=== PATIENT | male | born 1945 | race Caucasian/White ===

== ENCOUNTER 2017-12-19 15:13 | Emergency (ER) | payer OTHER ==
[~2017-12-19] VITALS: Ht 190.5 cm; Wt 111.5 kg
[2017-12-19 15:24] VITALS: BP 154/74; PULSE 72; RESP 16; TEMP 97.9; O2SAT 97
[2017-12-19] MEDS ORDERED: HYDR50TA3 PO (16:04)
[2017-12-19] MEDS ORDERED: METO1TAB42 PO (16:04)
[2017-12-19] MEDS ORDERED: VERA120T3 PO (16:04)
[2017-12-19] MEDS ORDERED: ASPI81TA23 PO (16:04)
[2017-12-19] MEDS ORDERED: VITA100064 PO (16:04)
[2017-12-19] MEDS ORDERED: BACT800T5 PO (16:25)
--- NOTE | 2017-12-19 16:25 | PD ---
HPI Chief Complaint: Edema Time Seen by Provider: 15:43 Travel History International Travel<30 days: No Contact w/Intl Traveler<30days: No Traveled to known affect area: No History of Present Illness HPI This is a 72-year-old male presented the ER complaining of bilateral leg edema left more than right. 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 Patient went to the beach and was exposed to harsh sunlight for the last 4 days and since then has been having swelling of both legs left more than right associated with tenderness. Patient denies any fever chills or night sweats. Patient has history of hypertension but no diabetes currently does not smoke nor drink. PFSH Past Medical History Cardiovascular Problems: Yes (palpitations) Chest Pain: Yes Hypertension: Yes Tetanus Vaccination: < 5 Years Influenza Vaccination: Yes Past Surgical History Cholecystectomy: Yes Other Surgery: Yes (cardiac cath x 2) Social History Alcohol Use: No Tobacco Use: No Substance Use: No Allergies-Medications (Allergen,Severity, Reaction): Coded Allergies: No Known Allergies (Unverified , 12/19/17) Reported Meds & Prescriptions Reported Meds & Active Scripts Active Bactrim DS (Sulfamethoxazole-Trimethoprim) 800-160 Mg Tab 1 Tab PO BID Reported Vitamin D3 (Cholecalciferol) Unknown Strength Tab Unknown Dose PO DAILY Aspirin EC (Aspirin) 81 Mg Tabdr 81 Mg PO DAILY Metoprolol Succinate ER 24 HR (Metoprolol Succinate) 25 Mg Tab 25 Mg PO DAILY Hydrochlorothiazide 50 Mg Tab 50 Mg PO DAILY Verapamil (Verapamil HCl) 120 Mg Tab 120 Mg PO DAILY Review of Systems Except as stated in HPI: all other systems reviewed are Neg Physical Exam Narrative GENERAL: Alert oriented 3 no acute distress SKIN: Focused skin assessment warm/dry. HEAD: Atraumatic. Normocephalic. EYES: Pupils equal and round. No scleral icterus. No injection or drainage. ENT: No nasal bleeding or discharge. Mucous membranes pink and moist. NECK: Trachea midline. CARDIOVASCULAR: Regular rate and rhythm. No murmur appreciated. RESPIRATORY: No accessory muscle use. Clear to auscultation. Breath sounds equal bilaterally. GASTROINTESTINAL: Abdomen soft, non-tender, nondistended. Hepatic and splenic margins not palpable. MUSCULOSKELETAL: Chronic hyperpigmentation of both legs, area of erythema left more than right and warm to touch, pulses intact, sensory and motor function intact bilaterally. No discharge or bleeding, no open wounds. NEUROLOGICAL: Awake and alert. No obvious cranial nerve deficits. Motor grossly within normal limits. Normal speech. PSYCHIATRIC: Appropriate mood and affect; insight and judgment normal. Data Data Last Documented VS Vital Signs Date Time Temp Pulse Resp B/P (MAP) Pulse Ox O2 Delivery O2 Flow Rate FiO2 12/19/17 15:55 70 16 97 Room Air 12/19/17 15:24 97.9 154/74 (100) Orders Orders Complete Blood Count With Diff (12/19/17 16:07) Comprehensive Metabolic Panel (12/19/17 16:07) B-Type Natriuretic Peptide (12/19/17 16:07) Ed Discharge Order (12/19/17 17:21) Labs Laboratory Tests Test 12/19/17 16:35 White Blood Count 8.5 TH/MM3 Red Blood Count 4.46 MIL/MM3 Hemoglobin 13.5 GM/DL Hematocrit 41.4 % Mean Corpuscular Volume 93.0 FL Mean Corpuscular Hemoglobin 30.2 PG Mean Corpuscular Hemoglobin Concent 32.5 % Red Cell Distribution Width 13.0 % Platelet Count 245 TH/MM3 Mean Platelet Volume 8.6 FL Neutrophils (%) (Auto) 59.7 % Lymphocytes (%) (Auto) 24.4 % Monocytes (%) (Auto) 8.5 % Eosinophils (%) (Auto) 4.5 % Basophils (%) (Auto) 2.9 % Neutrophils # (Auto) 5.1 TH/MM3 Lymphocytes # (Auto) 2.1 TH/MM3 Monocytes # (Auto) 0.7 TH/MM3 Eosinophils # (Auto) 0.4 TH/MM3 Basophils # (Auto) 0.2 TH/MM3 CBC Comment DIFF FINAL Differential Comment Blood Urea Nitrogen 27 MG/DL Creatinine 1.20 MG/DL Random Glucose 127 MG/DL Total Protein 8.1 GM/DL Albumin 3.8 GM/DL Calcium Level 8.6 MG/DL Alkaline Phosphatase 94 U/L Aspartate Amino Transf (AST/SGOT) 40 U/L Alanine Aminotransferase (ALT/SGPT) 27 U/L Total Bilirubin 0.5 MG/DL Sodium Level 138 MEQ/L Potassium Level 4.8 MEQ/L Chloride Level 104 MEQ/L Carbon Dioxide Level 28.4 MEQ/L Anion Gap 6 MEQ/L Estimat Glomerular Filtration Rate 59 ML/MIN B-Type Natriuretic Peptide 17 PG/ML MDM Medical Decision Making Medical Screen Exam Complete: Yes Emergency Medical Condition: Yes Differential Diagnosis CHF, cellulitis, photosensitivity. Narrative Course This is a 72-year-old male presents to the ER complaining of bilateral leg pain left more than right. 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 Physical examination is remarkable for cellulitis left more than right. Lab work is within normal limits. Patient will be discharged him on antibiotics and I recommended that he follows up with his primary care physician. Diagnosis Primary Impression: Cellulitis, leg Qualified Codes: L03.119 - Cellulitis of unspecified part of limb Additional Instructions: Follow-up with primary care physician in [place] symptoms change or do not improve. Scripts Sulfamethoxazole-Trimethoprim (Bactrim DS) 800-160 Mg Tab 1 TAB PO BID for Infection, #20 TAB 0 Refills Prov: Jaylan Egan MD 12/19/17 Disposition: 01 DISCHARGE HOME Condition: Stable Jaylan Egan MD Dec 19, 2017 16:25
[2017-12-19 16:55] LABS: AUTOMATED NEUTROPHIL # 5.1 TH/MM3 (1.8-7.7); BASOPHIL # 0.2 TH/MM3 (0-0.2); BASOPHIL % 2.9 % (0.0-2.0); EOSINOPHIL # 0.4 TH/MM3 (0-0.4); EOSINOPHIL % 4.5 % (0.0-4.0); HEMATOCRIT 41.4 % (39.0-51.0); HEMOGLOBIN 13.5 GM/DL (13.0-17.0); LYMPH % 24.4 % (9.0-44.0); LYMPHOCYTE # 2.1 TH/MM3 (1.0-4.8); MEAN CORPUSCULAR HEMOGLOBIN 30.2 PG (27.0-34.0); MEAN CORPUSCULAR HGB CONC 32.5 % (32.0-36.0); MEAN PLATELET VOLUME 8.6 FL (7.0-11.0); MONO % 8.5 % (0.0-8.0); MONOCYTE # 0.7 TH/MM3 (0-0.9); NEUT % 59.7 % (16.0-70.0); PLATELET COUNT 245 TH/MM3 (150-450); RED BLOOD COUNT 4.46 MIL/MM3 (4.50-5.90); WHITE BLOOD COUNT 8.5 TH/MM3 (4.0-11.0)
[2017-12-19 17:08] LABS: CHLORIDE 104 MEQ/L (98-107); SODIUM (NA) 138 MEQ/L (136-145)
[2017-12-19 17:11] LABS: CALCIUM 8.6 MG/DL (8.5-10.1)
[2017-12-19 17:12] LABS: ALBUMIN 3.8 GM/DL (3.4-5.0); BICARBONATE 28.4 MEQ/L (21.0-32.0); BLOOD UREA NITROGEN 27 MG/DL (7-18); GLUCOSE,RANDOM 127 MG/DL (74-106)
[2017-12-19 17:15] LABS: ALT (GPT) 27 U/L (12-78); AST (GOT) 40 U/L (15-37); GLOMERULAR FILTRATION RATE 59 ML/MIN (>89)
[2017-12-19 17:16] LABS: TOTAL BILIRUBIN ADULT 0.5 MG/DL (0.2-1.0); TOTAL PROTEIN 8.1 GM/DL (6.4-8.2)
[2017-12-19 17:18] LABS: ALKALINE PHOSPHATASE 94 U/L (45-117)
== END 2017-12-19 18:13 | disposition home or self-care (01) ==
LOC: PHED 15:13
DX: L03.116 Cellulitis of left lower limb (principal); L03.115 Cellulitis of right lower limb; I10 Essential (primary) hypertension; Z79.82 Long term (current) use of aspirin; Z79.899 Other long term (current) drug therapy
CPT/HCPCS: 80053; 83880; 85025; 99283